=== PATIENT | male | born 1970 | race African-American/Black ===

== ENCOUNTER 2017-09-14 13:03 | Inpatient (IN) | payer OTHER ==
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
[2017-09-14] MEDS ORDERED: LOPERAMIDE HCL 2 MG CAPSULE PO PRN (20:59)
[2017-09-14] MEDS ORDERED: MAGNESIUM CITRATE 300 ML BOTTLE PO PRN (20:59)
[2017-09-14] MEDS ORDERED: NICOTINE POLACRILEX 2 MG GUM BC PRN (20:59)
[2017-09-14] MEDS ORDERED: MAG HYDROX/AL HYDROX/SIMETH 30 ML UNIT-DOSE CUP PO PRN (20:59)
[2017-09-14] MEDS ORDERED: ACETAMINOPHEN 325 MG TABLET (FP) PO PRN (20:59)
[2017-09-14] MEDS ORDERED: MENTHOL/PHENOL 1 EACH UD MM PRN (20:59)
[2017-09-14] MEDS ORDERED: guaiFENesin/D-METHORPHAN HB 10 ML UNIT-DOSE CUPS PO PRN (20:59)
[2017-09-14] MEDS ORDERED: IBUPROFEN 400 MG TABLET (FP) PO PRN (20:59)
[2017-09-14] MEDS ORDERED: hydrOXYzine PAMOATE 50 MG CAPSULE (FP) PO PRN (20:59)
[2017-09-14] MEDS ORDERED: MAGNESIUM HYDROX 2400MG/30ML ORAL SUSPENSION 30 ML CUP PO PRN (20:59)
[2017-09-14] MEDS ORDERED: P-EPHED 60MG/TRIPROLIDI 2.5MG TABLET PO PRN (20:59)
[2017-09-14] MEDS ORDERED: MELATONIN 5 MG TABLETS PO PRN (22:00)
[2017-09-14] MEDS ORDERED: ALBUTEROL SO4 0.083% IH SOL 2.5 MG/3 ML VIAL.NEB. NEB PRN (22:09)
[2017-09-14] MEDS: THIAMINE HCL 100 MG TABLET (FP) PO SCH (22:24)
[2017-09-14] MEDS: COLLOIDAL OATMEAL 1 BAR EACH TP PRN (22:24)
[2017-09-14] MEDS ORDERED: TUBERCULIN PPD 5 TU/0.1ML VIAL ID ONE (22:24)
--- NOTE | 2017-09-14 23:52 | PN ---
[facility] Progress Note Note: Psychiatry Attending's workers compensation adjuster note : Called to enter orders for medications. New admission to [address] [place] [address]. 47 y/o male with Schizoaffective Disorder. Co-morbid with heroin/cocaine dependence. [facility] report reviewed. Noted on medication reconciliation list : Risperdal 2 mg po bid.Cannot be verified. Review of pharmacy claims : no information. Patient not available for interview.Sound asleep. NO orders entered.Unit psychiatrist to follow in AM. Discussed with nurse on duty.
[2017-09-15] MEDS: ALBUTEROL SO4 18 GM HFA INHALER IH PRN (02:30)
--- NOTE | 2017-09-15 02:41 | PN ---
[facility] Progress Note Note: CLIENT SEEN FOR SOB. CLIENT REPORTS HE WOKE UP PANICKING DUE TO NOT BEING ABLE TO BREATHE. C/O SOB AND CHEST TIGHTNESS. DENIES C.P. SEEN SEATED UP IN CHAIR SOB MILD DISTRESS WITH O2 2 L ON NEURO- A/O X3 LUNGS: EXP WHEEZING BILAT CV: RRR TACHY A/P ASTHMA EXACERBATION ALBUTEROL NEBULIZER X1 STAT UPON REASSESMENT CLIENT REPORTS FEELING BETTER. DENIES SOB, CHEST TIGHTNESS. LUNGS: CTA 02 SAT 97%RA Vital Signs Temperature 98.8 F 09/14/17 22:21 Pulse Rate 68 09/15/17 02:57 Respiratory Rate 18 09/15/17 00:30 Blood Pressure 130/94 09/15/17 02:57 O2 Sat by Pulse Oximetry (%) CONT TO MONITOR CLOSELY RESCUE INHALER PRN
[2017-09-15] MEDS: PRENATAL VITAMINS W/ FOLIC ACID TABLET (FP) PO SCH (10:15)
[2017-09-15] MEDS: NICOTINE 14 MG/24 HOURS TOPICAL PATCH TD SCH (10:15)
[2017-09-15 10:30] LABS: CHLORIDE 104 mmol/L (98-107); POTASSIUM 4.2 mmol/L (3.5-5.1); SODIUM 141 mmol/L (136-145)
[2017-09-15 10:32] LABS: HEMATOCRIT 44.9 % (35.4-49); HEMOGLOBIN 14.8 GM/dL (11.7-16.9); MCH 30.4 pg (25.7-33.7); MCHC 33.1 g/dl (32.0-35.9); MEAN PLT VOLUME 7.2 fl (7.5-11.1); PLATELET COUNT 307 K/MM3 (134-434); RBC 4.88 M/mm3 (4.00-5.60); RDW 12.8 % (11.9-15.9); WHITE BLOOD COUNT 11.2 K/mm3 (4.0-10.0)
[2017-09-15 10:44] LABS: ALBUMIN 3.7 g/dl (3.4-5.0); ALK PHOS 137 U/L (45-117); ANION GAP 7 (8-16); BILIRUBIN,TOTAL 0.5 mg/dL (0.2-1.0); BLOOD UREA NITROGEN 13 mg/dL (7-18); CALCIUM 9.2 mg/dL (8.5-10.1); CO2 30 mmol/L (21-32); CREATININE 0.9 mg/dL (0.7-1.3); GLUCOSE,RANDOM 101 mg/dL (74-106); SGOT/AST 15 U/L (15-37); SGPT/ALT 17 U/L (12-78)
[2017-09-15] MEDS ORDERED: METHADONE HCL 10 MG TABLET PO SCH (11:00)
[2017-09-15] MEDS ORDERED: METHADONE HCL 40 MG DISPERSABLE TABLET ONE (11:17)
[2017-09-15] MEDS ORDERED: METHADONE HCL 10 MG TABLET ONE (11:17)
[2017-09-15] MEDS: METHADONE 80 MG, METHADONE 20 MG PO SCH (11:19)
--- NOTE | 2017-09-15 11:42 | EKG ---
Test Reason : Blood Pressure : / mmHG Vent. Rate : 057 BPM Atrial Rate : 057 BPM P-R Int : 148 ms QRS Dur : 084 ms QT Int : 422 ms P-R-T Axes : 075 081 070 degrees QTc Int : 410 ms SINUS BRADYCARDIA OTHERWISE NORMAL ECG NO PREVIOUS ECGS AVAILABLE Confirmed by JOSSIE GUO, LANDON ([id number]) on 09/15/2017 11:42:21 AM Referred By: Confirmed By:LANDON SETHI MD
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
[2017-09-15] MEDS: THIAMINE HCL 100 MG TABLET (FP) PO SCH (22:02)
[2017-09-16] MEDS ORDERED: METHADONE HCL 10 MG TABLET ONE (04:47)
[2017-09-16] MEDS ORDERED: METHADONE HCL 40 MG DISPERSABLE TABLET ONE (04:48)
[2017-09-16] MEDS: METHADONE 80 MG, METHADONE 20 MG PO SCH (06:16)
[2017-09-16] MEDS: PRENATAL VITAMINS W/ FOLIC ACID TABLET (FP) PO SCH (10:17)
[2017-09-16] MEDS: NICOTINE 14 MG/24 HOURS TOPICAL PATCH TD SCH (10:17)
--- NOTE | 2017-09-16 13:36 | PN ---
[facility] Progress Note Note: Psychiatric nurse practitioner note: Pt. requesting risperdal 2mg BID. Dr. Waldron's note read and appreciated. OPD is provided at the [facility]. Diagnosis of schizoaffective disorder. Will order Risperdal 2mg BID. Benefits and side effects discussed. Pt. made aware of the risk of gynecomastia, hypolactemia, and involuntary movements such as akathisia and dystonia. Verbal consent given. Will continue to monitor.
--- NOTE | 2017-09-16 14:19 | PN ---
S Progress Note Note: CBC shows WBC 11.2. Patient asympotmatic. Afebrile. Will repeat CBC on Tuesday. Continue to monitor clinically.
[2017-09-16] MEDS: risperiDONE 2 MG TABLET PO SCH (21:42)
[2017-09-16] MEDS: THIAMINE HCL 100 MG TABLET (FP) PO SCH (21:42)
[2017-09-17] MEDS ORDERED: METHADONE HCL 10 MG TABLET ONE (04:41)
[2017-09-17] MEDS ORDERED: METHADONE HCL 40 MG DISPERSABLE TABLET ONE (04:42)
[2017-09-17] MEDS: METHADONE 80 MG, METHADONE 20 MG PO SCH (06:47)
[2017-09-17] MEDS: NICOTINE 14 MG/24 HOURS TOPICAL PATCH TD SCH (10:21)
[2017-09-17] MEDS: PRENATAL VITAMINS W/ FOLIC ACID TABLET (FP) PO SCH (10:21)
[2017-09-17] MEDS: risperiDONE 2 MG TABLET PO SCH ×2 (10:21→21:26)
[2017-09-17] MEDS: THIAMINE HCL 100 MG TABLET (FP) PO SCH (21:26)
[2017-09-18] MEDS ORDERED: METHADONE HCL 10 MG TABLET ONE (04:38)
[2017-09-18] MEDS ORDERED: METHADONE HCL 40 MG DISPERSABLE TABLET ONE (04:38)
[2017-09-18] MEDS: METHADONE 80 MG, METHADONE 20 MG PO SCH (06:49)
[2017-09-18] MEDS: PRENATAL VITAMINS W/ FOLIC ACID TABLET (FP) PO SCH (10:22)
[2017-09-18] MEDS: risperiDONE 2 MG TABLET PO SCH ×2 (10:22→22:34)
[2017-09-18] MEDS: NICOTINE 14 MG/24 HOURS TOPICAL PATCH TD SCH (10:22)
[2017-09-18] MEDS: THIAMINE HCL 100 MG TABLET (FP) PO SCH (22:34)
[2017-09-19] MEDS ORDERED: METHADONE HCL 40 MG DISPERSABLE TABLET ONE (04:23)
[2017-09-19] MEDS ORDERED: METHADONE HCL 10 MG TABLET ONE (04:23)
[2017-09-19] MEDS: METHADONE 80 MG, METHADONE 20 MG PO SCH (05:43)
[2017-09-19] MEDS: risperiDONE 2 MG TABLET PO SCH ×2 (10:22→23:24)
[2017-09-19] MEDS: NICOTINE 14 MG/24 HOURS TOPICAL PATCH TD SCH (10:22)
[2017-09-19] MEDS: PRENATAL VITAMINS W/ FOLIC ACID TABLET (FP) PO SCH (10:22)
[2017-09-19 11:22] LABS: BASO % 0.5 % (0-2.0); EOS % 9.6 % (0-4.5); HEMATOCRIT 43.2 % (35.4-49); HEMOGLOBIN 14.7 GM/dL (11.7-16.9); LYMPH % 37.2 % (8-40); MCH 31.3 pg (25.7-33.7); MEAN PLT VOLUME 7.3 fl (7.5-11.1); MONO % 7.7 % (3.8-10.2); PLATELET COUNT 297 K/MM3 (134-434); RBC 4.69 M/mm3 (4.00-5.60); RDW 12.4 % (11.9-15.9); WHITE BLOOD COUNT 7.6 K/mm3 (4.0-10.0)
[2017-09-19] MEDS ORDERED: METHADONE HCL 40 MG DISPERSABLE TABLET PO SCH (15:19)
--- NOTE | 2017-09-19 15:24 | PN ---
[facility] Progress Note Note: Patient presents with drowsiness and sedation in the late morning after taking Methadone dose. Requesting to decrease dose of Methadone. Patient medically stable. Will decrease dose to 90mg daily and monitor clinically.
[2017-09-19] MEDS: THIAMINE HCL 100 MG TABLET (FP) PO SCH (23:24)
[2017-09-20] MEDS ORDERED: METHADONE HCL 10 MG TABLET ONE (04:46)
[2017-09-20] MEDS ORDERED: METHADONE HCL 40 MG DISPERSABLE TABLET ONE (04:46)
[2017-09-20] MEDS ORDERED: METHADONE HCL 40 MG DISPERSABLE TABLET PO SCH (06:00)
[2017-09-20] MEDS: METHADONE 80 MG, METHADONE 10 MG PO SCH (06:04)
[2017-09-20 06:45] VITALS: TEMP 97.8
[2017-09-20] MEDS: PRENATAL VITAMINS W/ FOLIC ACID TABLET (FP) PO SCH (10:25)
[2017-09-20] MEDS: risperiDONE 2 MG TABLET PO SCH ×2 (10:25→21:27)
[2017-09-20] MEDS: ALBUTEROL SO4 18 GM HFA INHALER IH PRN ×2 (10:26→21:27)
[2017-09-20] MEDS: NICOTINE 14 MG/24 HOURS TOPICAL PATCH TD SCH (10:29)
[2017-09-20] MEDS ORDERED: CYCLOBENZAPRINE HCL 5 MG TABLET PO PRN (12:42)
--- NOTE | 2017-09-20 12:45 | PN ---
[facility] Progress Note Note: c/o of muscular pain and spasms on gthe left deltoid . Denies decrease ROM or paresthesia. Vital Signs Temperature 97.8 F 09/20/17 06:44 Pulse Rate 74 09/20/17 06:44 Respiratory Rate 16 09/20/17 06:44 Blood Pressure 129/90 09/20/17 06:44 O2 Sat by Pulse Oximetry (%) Laboratory Last Values WBC 7.6 K/mm3 (4.0-10.0) D 09/19/17 07:00 RBC 4.69 M/mm3 (4.00-5.60) 09/19/17 07:00 Hgb 14.7 GM/dL (11.7-16.9) 09/19/17 07:00 Hct 43.2 % (35.4-49) 09/19/17 07:00 MCV 92.0 fl (80-96) 09/19/17 07:00 MCH 31.3 pg (25.7-33.7) 09/19/17 07:00 MCHC 34.0 g/dl (32.0-35.9) 09/19/17 07:00 RDW 12.4 % (11.9-15.9) 09/19/17 07:00 Plt Count 297 K/MM3 (134-434) 09/19/17 07:00 MPV 7.3 fl (7.5-11.1) L 09/19/17 07:00 Absolute Neuts (auto) 3.4 # 09/19/17 07:00 Neutrophils % 45.0 % (42.8-82.8) 09/19/17 07:00 Lymphocytes % 37.2 % (8-40) 09/19/17 07:00 Monocytes % 7.7 % (3.8-10.2) 09/19/17 07:00 Eosinophils % 9.6 % (0-4.5) H 09/19/17 07:00 Basophils % 0.5 % (0-2.0) 09/19/17 07:00 Nucleated RBC % 0 % (0-0) 09/19/17 07:00 Sodium 141 mmol/L (136-145) 09/15/17 08:30 Potassium 4.2 mmol/L (3.5-5.1) 09/15/17 08:30 Chloride 104 mmol/L (98-107) 09/15/17 08:30 Carbon Dioxide 30 mmol/L (21-32) 09/15/17 08:30 Anion Gap 7 (8-16) L 09/15/17 08:30 BUN 13 mg/dL (7-18) 09/15/17 08:30 Creatinine 0.9 mg/dL (0.7-1.3) 09/15/17 08:30 Creat Clearance w eGFR > 60 (>60) 09/15/17 08:30 Random Glucose 101 mg/dL (74-106) 09/15/17 08:30 Calcium 9.2 mg/dL (8.5-10.1) 09/15/17 08:30 Total Bilirubin 0.5 mg/dL (0.2-1.0) 09/15/17 08:30 AST 15 U/L (15-37) 09/15/17 08:30 ALT 17 U/L (12-78) 09/15/17 08:30 Alkaline Phosphatase 137 U/L (45-117) H 09/15/17 08:30 Total Protein 7.0 g/dl (6.4-8.2) 09/15/17 08:30 Albumin 3.7 g/dl (3.4-5.0) 09/15/17 08:30 RPR Titer Nonreactive (NONREACTIVE) 09/15/17 08:30 HIV 1&2 Antibody Screen Negative 09/19/17 07:00 HIV P24 Antigen Negative 09/19/17 07:00 A/P Patient AOX 3 in no apparent distress NO JVD, s1 and S2 no advencitious breath sounds + tenderness and spams on left deltoid Full ROM, ambulating in the unit - muscular spasm Plan: flexeril 5mg BID PRN tylenol PRN Increase fluids Continue to monitor
[2017-09-20] MEDS: COLLOIDAL OATMEAL 1 BAR EACH TP PRN (17:51)
[2017-09-20] MEDS: THIAMINE HCL 100 MG TABLET (FP) PO SCH (21:27)
[2017-09-21] MEDS ORDERED: METHADONE HCL 40 MG DISPERSABLE TABLET ONE (05:44)
[2017-09-21] MEDS ORDERED: METHADONE HCL 10 MG TABLET ONE (05:44)
[2017-09-21] MEDS: METHADONE 80 MG, METHADONE 10 MG PO SCH (06:03)
[2017-09-21 06:42] VITALS: BP 143/75; PULSE 78
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
[2017-09-21] MEDS: PRENATAL VITAMINS W/ FOLIC ACID TABLET (FP) PO SCH (10:30)
[2017-09-21] MEDS: NICOTINE 14 MG/24 HOURS TOPICAL PATCH TD SCH (10:30)
[2017-09-21] MEDS: risperiDONE 2 MG TABLET PO SCH (10:30)
== END 2017-09-21 11:00 | disposition home or self-care (01) | DRG 772 ==
LOC: YASAS 13:03 → Y5N 18:28
PROVIDERS: ADMIT Psychiatry & Neurology Psychiatry; ATTEND Psychiatry & Neurology Psychiatry
PROC: HZ42ZZZ Group Counseling for Substance Abuse Treatment, Cognitive-Behavioral (ICD-10-PCS; principal; 2017-09-14)
DX: F14.20 Cocaine dependence, uncomplicated (principal); F11.20 Opioid dependence, uncomplicated; F17.210 Nicotine dependence, cigarettes, uncomplicated; F25.9 Schizoaffective disorder, unspecified; F19.282 Other psychoactive substance dependence with psychoactive substance-induced sleep disorder; J45.21 Mild intermittent asthma with (acute) exacerbation; M62.838 Other muscle spasm
CPT/HCPCS: 36415; 80053; 85025; 85027; 86593; 87389; 93005; 93010